=== PATIENT | male | born 1990 | race American Indian/Alaskan Native ===

== ENCOUNTER 2017-04-04 12:27 | Emergency (ER) | payer SELFPAY ==
[2017-04-04 13:54] VITALS: BP 160/90
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
[2017-04-04] MEDS ORDERED: MOTRIN PO ONE (15:56)
== END 2017-04-04 15:00 | disposition left against medical advice (07) ==
LOC: ED 12:27
DX: Z53.21 Procedure and treatment not carried out due to patient leaving prior to being seen by health care provider (principal)

== ENCOUNTER 2017-08-25 16:51 | Emergency (ER) | payer SELFPAY ==
[2017-08-25 17:03] VITALS: BP 149/73
[2017-08-25] MEDS ORDERED: MOTRIN PO ONE (17:53)
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
--- NOTE | 2017-08-25 18:23 | XRay Report ---
FINAL REPORT PROCEDURE: XR HAND 3+V LT TECHNIQUE: LEFT hand radiographs, AP, lateral, and oblique views. CPT 22347-MG HISTORY: Fall. Hand injury. Deformity. COMPARISON: No prior studies are available for comparison. FINDINGS: Fracture (s) and/or Dislocation(s): Moderately comminuted fracture of the neck and head of the 2nd metacarpal. Mild angulation at the site of fracture. Moderate overriding of the fracture fragments. Up to 1-2 mm of diastasis of the fracture fragments. There may be slight radial rotary displacement of the metacarpal head. Alignment: Normal . Joint space(s): Normal . Soft tissues: Soft tissue swelling about above-described fracture, particularly dorsally. Bone mineralization: Tiny cysts in the capitate. Foreign bodies: None . IMPRESSION: Posttraumatic fracture of the distal 2nd metacarpal. Overlying soft tissue swelling.
== END 2017-08-25 18:22 | disposition home or self-care (01) ==
LOC: ED 16:51
DX: S62.391A Other fracture of second metacarpal bone, left hand, initial encounter for closed fracture (principal); F12.10 Cannabis abuse, uncomplicated; V87.8XXA Person injured in other specified noncollision transport accidents involving motor vehicle (traffic), initial encounter; Y93.89 Activity, other specified; Y92.89 Other specified places as the place of occurrence of the external cause; Y99.8 Other external cause status
CPT/HCPCS: 99283

== ENCOUNTER 2018-02-03 12:52 | Emergency (ER) | payer OTHER ==
[2018-02-03 13:07] VITALS: BP 164/92
--- NOTE | 2018-02-03 14:23 | Emergency Department Report ---
HPI - General Chief Complaint: Medical Clearance - HPI HPI: Room 39 The patient is 27-year-old male presenting with a chief complaint of psoriasis. The patient states she has a history of psoriasis and over the past 2 weeks the rash has worsened. The patient states when he gets this point he needs Soriatane. Patient presents to the ED for prescription Location: Diffuse body Duration: 2 weeks Quality: Irritated Severity: Moderate Modifying factors: [see above] Context: [see above] Mode of transportation: [not driving] ED Past Medical Hx - Past Medical History Previous Medical History?: No Additional medical history: Psoriasis - Surgical History Past Surgical History?: No - Family History Family history: no significant - Social History Smoking Status: Never Smoker Substance Use Type: None, Marijuana - Medications Home Medications: Home Medications Medication Instructions Recorded Confirmed Last Taken Type Cyclobenzaprine [Flexeril] 10 mg PO TID PRN 5 Days #15 tablet 04/04/17 Unknown Rx Ibuprofen [Motrin] 600 mg PO Q8H PRN 5 Days #15 tablet 04/04/17 Unknown Rx HYDROcodone/APAP 5-325 [[place] 1 each PO Q6HR PRN #15 tablet 08/25/17 Unknown Rx 5/325] Ibuprofen [Motrin] 800 mg PO Q8HR PRN #20 tablet 08/25/17 Unknown Rx Acitretin [Soriatane] 25 mg PO QDAY #30 capsule 02/03/18 Unknown Rx ED Review of Systems ROS: Stated complaint: PRESCRIPTION REFILL Other details as noted in HPI Constitutional: denies: fever Eyes: denies: eye pain ENT: denies: throat pain Respiratory: no symptoms reported Cardiovascular: denies: chest pain Endocrine: no symptoms reported Gastrointestinal: denies: abdominal pain Genitourinary: denies: dysuria Musculoskeletal: denies: back pain Skin: rash Neurological: denies: headache Physical Exam - Physical Exam Vital Signs: Vital Signs 02/03/18 13:01 Temperature 98.5 F Pulse Rate 78 Respiratory 16 Rate Blood Pressure 164/92 O2 Sat by Pulse 99 Oximetry Physical Exam: GENERAL: The patient is well-developed well-nourished male sitting in chair not appear to be in acute distress. [] HEENT: Normocephalic. Atraumatic. Extraocular motions are intact. Patient has moist mucous membranes. NECK: Supple. Trachea midline CHEST/LUNGS: Clear to auscultation. There is no respiratory distress noted. HEART/CARDIOVASCULAR: Regular. There is no tachycardia. There is no gallop rub or murmur. ABDOMEN: Abdomen is soft, nontender. Patient has normal bowel sounds. There is no abdominal distention. SKIN: There is a diffuse rash with psoriasis over the extremities and trunk. There is no edema. There is no diaphoresis. NEURO: The patient is awake, alert, and oriented. The patient is cooperative. The patient has normal speech MUSCULOSKELETAL: There is no evidence of acute injury. ED Course Vital Signs 02/03/18 13:01 Temperature 98.5 F Pulse Rate 78 Respiratory 16 Rate Blood Pressure 164/92 O2 Sat by Pulse 99 Oximetry ED Medical Decision Making - Differential Diagnosis psoriasis Critical care attestation.: If time is entered above; I have spent that time in minutes in the direct care of this critically ill patient, excluding procedure time. ED Disposition Clinical Impression: Psoriasis Disposition: DC-01 TO HOME OR SELFCARE Is pt being admited?: No Does the pt Need Aspirin: No Condition: Stable Instructions: Psoriasis (ED) Additional Instructions: Return to the emergency department immediately should you develop worsening symptoms, fever, inability to tolerate food or liquid or any other concerns. Prescriptions: Acitretin [Soriatane] 25 mg PO QDAY #30 capsule Referrals: PRIMARY CARE, [Primary Care Provider] - 3-5 Days ELIZA PALACIOS MD [Staff Physician] - 3-5 Days (Dr Palacios is a framing mechanic. Please follow up with him for further evaluation) Time of Disposition: 14:20
== END 2018-02-03 14:37 | disposition home or self-care (01) ==
LOC: ED 12:52
DX: L40.9 Psoriasis, unspecified (principal); F12.10 Cannabis abuse, uncomplicated
CPT/HCPCS: 99282

== ENCOUNTER 2018-08-01 11:41 | Emergency (ER) | payer OTHER ==
[2018-08-01 12:20] VITALS: BP 135/81
--- NOTE | 2018-08-01 12:22 | Emergency Department Report ---
Chief Complaint: Medical Clearance Stated Complaint: MED REFILL Time Seen by Provider: 08/01/18 12:19 - HPI History of Present Illness: pt is a 28 y o male with a hx of psoraisis presents for medication refill , states he is out of hois medication and has not been able to make it in to see his pcp denies any sxs today - ROS Review of Systems: denies all sxs as noted in HPI MSE screening note: Focused history and physical exam performed. Due to findings the following was ordered: ED Medical Decision Making - Medical Decision Making 28 y o male with a hx of Psoraisis presents for medication refill no acute distress, ED Disposition for MSE Clinical Impression: Medication refill Disposition: TO HOME OR SELFCARE Is pt being admited?: No Does the pt Need Aspirin: No Condition: Stable Instructions: Psoriasis (ED) Additional Instructions: f/u with your pcp take your medicine as prescribed Prescriptions: Triamcinolone 0.5% [Kenalog 0.5% CREAM] 1 applic TP TID #60 gm Acitretin [Soriatane] 25 mg PO QDAY #30 capsule Referrals: BETZY JOLLY MD [Primary Care Provider] - 3-5 Days Forms: Work/School Release Form(ED) Time of Disposition: 13:26
== END 2018-08-01 13:52 | disposition home or self-care (01) ==
LOC: ED 11:41
DX: L40.9 Psoriasis, unspecified (principal); Z76.0 Encounter for issue of repeat prescription
CPT/HCPCS: 99281

== ENCOUNTER 2018-09-05 13:18 | Emergency (ER) | payer SELFPAY | END 2018-09-05 14:28 | LOC: ED 13:18 | DX: L40.9 Psoriasis, unspecified (principal); Z76.0 Encounter for issue of repeat prescription; Z53.21 Procedure and treatment not carried out due to patient leaving prior to being seen by health care provider ==

== ENCOUNTER 2018-09-13 14:23 | Emergency (ER) | payer SELFPAY ==
[2018-09-13 14:27] VITALS: BP 148/100
--- NOTE | 2018-09-13 14:33 | Emergency Department Report ---
Chief Complaint: Medical Clearance Stated Complaint: MEDICATION REFILL Time Seen by Provider: 09/13/18 14:26 - HPI History of Present Illness: This is a 28-year-old male nontoxic well in appearnce presents to the ED for medication refill. Patient stated the he usually takes Triamcinolone 0.5% and Acitretin [Soriatane] 25 mg PO QDAY for psoriasis. Patient denies any chest pain, shortness of breathe, fever, chills, headache, nausea, vomiting. Patient denies any allergies. - Exam Vital Signs: Vital Signs 09/13/18 14:26 Temperature 98 F Pulse Rate 76 Respiratory 16 Rate Blood Pressure 148/100 O2 Sat by Pulse 99 Oximetry Physical Exam: Denies any symptoms. No cellulitis. no abscess. MSE screening note: Focused history and physical exam performed. Due to findings the following was ordered: ED Medical Decision Making - Medical Decision Making This is a 28-year-old male that presents with nonmedical emergency complaint. Patient is just requested for a STD test. Patient denies any symptoms. Patient was approached by registration for insurance or copay but patient refused. I gave patient many different referrals to follow-up with STD concerns. Patient was instructed to Follow-up with a primary care doctor in 3-5 days or if symptoms worsen and continue return to emergency room as soon as possible. At time of discharge, the patient does not seem toxic or ill in appearance. No acute signs of distress noted. Patient agrees to discharge treatment plan of care. No further questions noted by the patient. ED Disposition for MSE Clinical Impression: Medication refill Disposition: - MED SCREENING EXAM-LEFT Is pt being admited?: No Does the pt Need Aspirin: No Condition: Stable Additional Instructions: Follow-up with a primary care doctor in 3-5 days or if symptoms worsen and continue return to the emergency department as soon as possible. Referrals: PRIMARY MD ABDOUL [Primary Care Provider] - 3-5 Days DANNY CHAMBERS MD [Staff Physician] - 3-5 Days [facility] [Outside] - 3-5 Days [facility] [Outside] - 3-5 Days
== END 2018-09-13 14:44 | disposition left against medical advice (07) ==
LOC: ED 14:23
DX: Z76.0 Encounter for issue of repeat prescription (principal)
CPT/HCPCS: 99281

== ENCOUNTER 2020-07-28 09:30 | Emergency (ER) | payer SELFPAY ==
[2020-07-28 09:43] VITALS: BP 131/79
[2020-07-28] MEDS ORDERED: SULFAMETHOXAZOLE/TRIMETHOPRIM 800/160MG DS TAB PO ONE (10:10)
[2020-07-28] MEDS ORDERED: TETANUS,DIPH,PERTUSS(ACELL) VACCINE 0.5 ML SYRINGE IM ONE (10:10)
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
--- NOTE | 2020-07-28 10:47 | XRay Report ---
RIGHT HAND 3 VIEWS INDICATION: injury to the palm at base of thumb. COMPARISON: None. IMPRESSION: No acute osseous or soft tissue abnormality. No significant DJD. Signer Name: Jr Prescott Jr, MD Signed: 07/28/2020 10:43 AM Workstation Name: [id number]
== END 2020-07-28 12:00 | disposition home or self-care (01) ==
LOC: ED 09:30
DX: S61.401A Unspecified open wound of right hand, initial encounter (principal); F17.200 Nicotine dependence, unspecified, uncomplicated; Z79.899 Other long term (current) drug therapy; X58.XXXA Exposure to other specified factors, initial encounter; Y93.89 Activity, other specified; Y92.89 Other specified places as the place of occurrence of the external cause; Y99.8 Other external cause status
CPT/HCPCS: 90471; 90715